=== PATIENT | male | born 1985 | race Two or more races ===

== ENCOUNTER 2024-08-14 16:17 | Emergency (ER) | payer OTHER ==
[~2024-08-14] VITALS: Ht 182.9 cm; Wt 81.6 kg
[2024-08-14 16:49] VITALS: BP 120/87; O2SAT 95
[2024-08-14 18:35] LABS: HEMATOCRIT 41.4 % (39.0-48.0); HEMOGLOBIN 14.8 g/dL (13-16.00); MEAN CELL VOLUME 86.1 fL (80.0-100.00); MEAN CORPUSCULAR HEMOGLOBIN 30.7 pg (27.00-32.0); MEAN CORPUSCULAR HGB CONC 35.7 g/dl (32.0-36.0); PLATELET COUNT 219 K/uL (150-450); RED BLOOD COUNT 4.81 M/uL (4.00-6.00); RED CELL DISTRIBUTION WIDTH 13.1 % (11.5-14.5)
[2024-08-14 18:57] LABS: ABG PO2 87.6 mmHg (80-100); BASE EXCESS 0.9 mmol/l; BICARBONATE 25.4 mmol/l (23-25); SaO2 96.9 %; Tco2 26.6 mmol/l; allen test SATISFACTORY; puncture site RADIAL RIGHT
[2024-08-14 18:58] LABS: o2 21 %
[2024-08-14] MEDS ORDERED: TUSSIN DM LIQU118 ML PO (20:39)
[2024-08-14] MEDS ORDERED: COUGH DROPS1 EACH MM (20:39)
== END 2024-08-14 21:20 | disposition home or self-care (01) ==
LOC: ER 16:19
PROVIDERS: General Practice
DX: J06.9 Acute upper respiratory infection, unspecified (principal); J00 Acute nasopharyngitis [common cold]; Z20.822 Contact with and (suspected) exposure to COVID-19